=== PATIENT | female | born 1970 | race Caucasian/White ===

== ENCOUNTER 2016-12-22 16:20 | Emergency (ER) | payer OTHER ==
[2016-12-22 16:25] VITALS: BP 143/73; PULSE 85; TEMP 97.5; BMI 29.9
--- NOTE | 2016-12-22 20:30 | PDOC ---
History of Present Illness - General Chief Complaint: Pain, Acute Stated Complaint: PAIN, ACUTE Time Seen by Provider: 12/22/16 19:50 - History of Present Illness Initial Comments: 12/22/16 21:07 Patient is a 46 year old female who presents with left flank pain. The patient reports a 1 month history of left flank pain that has been acutely worsening over the past 1 week. She states that the pain is sharp and worse with movement and breathing. She also notes some pain at the end of urination with foul smelling urine. She denies any fevers, chills, SOB, chest pain, abdominal pain or changes with bowel movements. Past History - Past Medical History Allergies/Adverse Reactions: Allergies Allergy/AdvReac Type Severity Reaction Status Date / Time No Known Allergies Allergy Verified 12/22/16 16:25 Home Medications: Ambulatory Orders NK [No Known Home Medication] 12/22/16 Hypercholesterolemia: Yes Other medical history: TUBAL LIGATION - Surgical History Cholecystectomy: Yes - Psycho/Social/Smoking Cessation Hx Suicidal Ideation: No Smoking History: Never smoked Information on smoking cessation initiated: No Review of Systems - Review of Systems Constitutional: No: Chills, Fever Respiratory: No: Cough, Shortness of Breath Cardiac (ROS): No: Chest Pain, Lightheadedness, Palpitations ABD/GI: No: Constipated, Diarrhea, Nausea, Vomiting : Yes: Dysuria, Flank Pain. No: Hematuria Integumentary: No: Rash Neurological: No: Headache, Numbness, Tingling, Weakness *Physical Exam - Vital Signs Last Vital Signs Temp Pulse Resp BP Pulse Ox 97.5 F L 85 18 143/73 100 12/22/16 16:21 12/22/16 16:21 12/22/16 16:21 12/22/16 16:21 12/22/16 16:21 - Physical Exam Comments: 12/22/16 21:17 General Appearance: Nourished. No Apparent Distress Respiratory/Chest: Lungs Clear, Normal Breath Sounds. No Crackles, Rales, Rhonchi, Wheezing Cardiovascular: Regular Rhythm, Regular Rate. No Murmur, Gallop/S3, Gallop/S4 Gastrointestinal/Abdominal: Normal Bowel Sounds, Soft. No Guarding, Rebound, Tenderness Musculoskeletal: CVA Tenderness (L). No CVA Tenderness (R) Extremity: Normal Capillary Refill Integumentary: Normal Color, Dry, Warm Neurologic: Fully Oriented, Alert, Normal Mood/Affect, Normal Response ED Treatment Course - LABORATORY CBC & Chemistry Diagram: 12/22/16 20:30 12/22/16 20:30 Medical Decision Making - Medical Decision Making 12/22/16 21:25 Patient is a 46 year old female who presents with left flank pain. Differential includes but is not limited to: UTI, Pyelonephritis, Nephrolethiasis, Metabolic derangement. Given the patient's flank pain and pain on urination with foul smelling urine, it is likely her symptoms are due to a UTI or Pyelonephritis. We will obtain a cbc, cmp, and UA to evaluate. 12/22/16 22:07 Cbc, cmp and UA are unremarkable. It is likely her pain is due to musculoskeletal strain. We will give her some torodal and reevaluate. 12/22/16 22:08 The patient reports some improvement in her pain with torodal and is requesting discharge. We feel comfortable discharging the patient at this time. We discussed the results with the patient and she is agreeable with the plan and will follow up with her primary care provider. *DC/Admit/Observation/Transfer Diagnosis at time of Disposition: Musculoskeletal strain - Discharge Dispostion Disposition: HOME Condition at time of disposition: Improved Admit: No - Patient Instructions Printed Discharge Instructions: DI for Muscle Strain Additional Instructions: Por favor volver a ER si experimenta sntomas de empeoramiento o sobre. Por favor llame a seguir con rushing proveedor de cuidado primario para discutir rushing visita ER. Puede alicia ibuprofeno o tylenol para dolor. Es probable que usted tiene la tensin de un msculo de la espalda. Tambin podr descansar y utilizar compresas calientes y fras para ayudar con el dolor. Print Language: BURMESE
[2016-12-22 20:42] LABS: BASOPHIL 0.9 % (0-2.0); MCH 26.1 pg (25.7-33.7); MCHC 32.5 g/dl (32.0-36.0); MEAN CELL VOLUME 80.2 fl (80-96); MEAN PLT VOLUME 9.3 fl (7.5-11.1); NEUTROPHILS 62.3 % (42.8-82.8); PLATELET COUNT 190 K/MM3 (134-434); RDW 15.3 % (11.6-15.6); WHITE BLOOD COUNT 6.3 K/mm3 (4.0-10.0)
[2016-12-22 21:18] LABS: ALBUMIN 3.7 g/dl (3.4-5.0); ANION GAP 7 (8-16); BILIRUBIN,TOTAL 0.5 mg/dL (0.2-1.0); CALCIUM 8.9 mg/dL (8.5-10.1); CO2 31 mmol/L (21-32); CREATININE 0.8 mg/dL (0.55-1.02); GLUCOSE,RANDOM 115 mg/dL (74-106); SGOT/AST 20 U/L (15-37); SGPT/ALT 18 U/L (12-78); TOT PROT 7.5 g/dl (6.4-8.2)
[2016-12-22 21:19] LABS: ALK PHOS 98 U/L (45-117)
[2016-12-22 21:34] LABS: URINE APPEARANCE CLEAR; URINE BILIRUBIN NEGATIVE (NEGATIVE); URINE BLOOD NEGATIVE (NEGATIVE); URINE COLOR STRAW; URINE GLUCOSE (UA) NEGATIVE (NEGATIVE); URINE KETONE NEGATIVE (NEGATIVE); URINE LEUK ESTERASE NEGATIVE (NEGATIVE); URINE NITRITE NEGATIVE (NEGATIVE); URINE PROTEIN NEGATIVE (NEGATIVE); URINE UROBILINOGEN NEGATIVE mg/dL (0.2-1.0)
[2016-12-22] MEDS ORDERED: KETOROLAC TROMETHAMINE 30 MG/1 ML VIAL IM ONE (21:47)
[2016-12-22] MEDS ORDERED: KETOROLAC TROMETHAMINE 30 MG/1 ML VIAL ONE (21:49)
== END 2016-12-22 22:16 | disposition home or self-care (01) ==
LOC: JER 16:20
PROC: 3E0233Z Introduction of Anti-inflammatory into Muscle, Percutaneous Approach (ICD-10-PCS; principal; 2016-12-22)
DX: S39.011A Strain of muscle, fascia and tendon of abdomen, initial encounter (principal); X58.XXXA Exposure to other specified factors, initial encounter; Y93.89 Activity, other specified; Y92.89 Other specified places as the place of occurrence of the external cause
CPT/HCPCS: 36415; 80053; 81003; 84703; 85025; 96372; 99282-25

== ENCOUNTER 2017-06-08 22:42 | Emergency (ER) | payer OTHER ==
[2017-06-08 23:26] VITALS: BP 129/71; PULSE 84; TEMP 97.9; BMI 28.3
--- NOTE | 2017-06-09 01:16 | PDOC ---
History of Present Illness - General Chief Complaint: Pain Stated Complaint: PAIN Time Seen by Provider: 06/09/17 01:08 History Source: Patient Exam Limitations: No Limitations - History of Present Illness Initial Comments: 06/09/17 01:13 47-year-old female with no medical history presents to the emergency department complaining of jaw pain with difficulty chewing and clicking of the jaw joints for approximately 3 years but increased over the past one week. Patient denies fever, chills, injury, sore throat, neck pain/stiffness, difficulty eating/ drinking area patient states she has not seen anyone for her jaw discomfort. Timing/Duration: other (x1 week) Past History - Past Medical History Allergies/Adverse Reactions: Allergies Allergy/AdvReac Type Severity Reaction Status Date / Time No Known Allergies Allergy Verified 12/22/16 16:25 Home Medications: Ambulatory Orders Atorvastatin Ca [Lipitor] 20 mg NR ASDIR 06/09/17 COPD: No Hypercholesterolemia: Yes - Surgical History Cholecystectomy: Yes - Suicide/Smoking/Psychosocial Hx Smoking History: Never smoked Have you smoked in the past 12 months: No Information on smoking cessation initiated: No Hx Alcohol Use: No Drug/Substance Use Hx: No Substance Use Type: None Review of Systems - Review of Systems Able to Perform ROS?: Yes Comments:: 06/09/17 01:14 CONSTITUTIONAL: Absent: fever, chills, diaphoresis, generalized weakness, malaise, loss of appetite HEENT: +b/l jaw pain/clicking x3 years Absent: rhinorrhea, nasal congestion, throat pain, throat swelling, difficulty swallowing, mouth swelling, ear pain, eye pain, visual Changes CARDIOVASCULAR: Absent: chest pain, loss of consciousness, palpitations, irregular heart rate, peripheral edema RESPIRATORY: Absent: cough, shortness of breath, dyspnea with exertion, orthopnea, wheezing, stridor, hemoptysis GASTROINTESTINAL: Absent: abdominal pain, abdominal distension, nausea, vomiting, diarrhea, constipation, melena, hematochezia GENITOURINARY: Absent: dysuria, frequency, urgency, hesitancy, hematuria, flank pain, genital pain MUSCULOSKELETAL: Absent: myalgia, arthralgia, joint swelling SKIN: Absent: rash, itching, pallor Is the patient limited Welsh proficient: No *Physical Exam - Vital Signs Last Vital Signs Temp Pulse Resp BP Pulse Ox 97.9 F 84 18 129/71 100 06/08/17 23:19 06/08/17 23:19 06/08/17 23:19 06/08/17 23:19 06/08/17 23:19 - Physical Exam Comments: 06/09/17 01:14 GENERAL: Well developed, well nourished. Awake and alert. No acute distress. HEENT: +TMJ pain Normocephalic, atraumatic. PERRLA, EOMI. No conjunctival pallor. Sclera are non- icteric. Moist mucous membranes. Oropharynx is clear. NECK: Supple. Full ROM. No JVD. Carotid pulses 2+ and symmetric, without bruits. No thyromegaly. No lymphadenopathy. MUSCULOSKELETAL Normal range of motion at all joints. No bony deformities or tenderness. No CVA tenderness. EXTREMITIES: No cyanosis. No clubbing. No edema. No calf tenderness. SKIN: Warm and dry. Normal capillary refill. No rashes. No jaundice. *DC/Admit/Observation/Transfer Diagnosis at time of Disposition: TMJ (temporomandibular joint disorder) - Discharge Dispostion Disposition: HOME Condition at time of disposition: Stable Admit: No - Referrals Referrals: Celia Martinez MD [Primary Care Provider] - Marii Alatorre MD [Non Staff, Medical] - - Patient Instructions Printed Discharge Instructions: DI for Temporomandibular Disorder Additional Instructions: Ice; 20 mins on alternating with 20 mins off for 48 hours while awake. Rest Follow up with your orthopedic surgeon or the one listed on the discharge form. Return to the ER for severe/persistent/worsening symptoms, extremity numbness/ tingling sensation. Print Language: BERMUDIAN - Post Discharge Activity
== END 2017-06-09 01:17 | disposition home or self-care (01) ==
LOC: JERFT 22:42
DX: M26.69 Other specified disorders of temporomandibular joint (principal)
CPT/HCPCS: 99281-25

== ENCOUNTER 2017-07-08 11:55 | Emergency (ER) | payer OTHER ==
[2017-07-08 12:04] VITALS: BP 139/78; PULSE 95; TEMP 98.6; BMI 30.9
--- NOTE | 2017-07-08 12:46 | PDOC ---
History of Present Illness - General Chief Complaint: Injury Stated Complaint: RT FINGER INJURY Time Seen by Provider: 07/08/17 12:39 History Source: Patient Exam Limitations: No Limitations - History of Present Illness Initial Comments: 07/08/17 13:15 last Thursday, tripped and fellonto right hand hyperextending her right thumbstates has been painful anden since that time.Is able to move finger, but is painful Has had no evaluation. Hashad no treatment Severity: reports: mild, moderate Pain Location: reports: none, upper extremity Modifying Factors: improves with: None, cold therapy Loss of Consciousness: no loss of consciousness Associated Symptoms (Fall): denies symptoms Past History - Travel Traveled outside of the country in the last 30 days: No Close contact w/someone who was outside of country & ill: No - Past Medical History Allergies/Adverse Reactions: Allergies Allergy/AdvReac Type Severity Reaction Status Date / Time No Known Allergies Allergy Verified 07/08/17 12:00 Home Medications: Ambulatory Orders Atorvastatin Ca [Lipitor] 20 mg NR ASDIR 06/09/17 COPD: No Hypercholesterolemia: Yes - Surgical History Cholecystectomy: Yes - Immunization History Immunization Up to Date: Yes - Suicide/Smoking/Psychosocial Hx Smoking History: Never smoked Have you smoked in the past 12 months: No Information on smoking cessation initiated: No Hx Alcohol Use: No Drug/Substance Use Hx: No Substance Use Type: None Review of Systems - Review of Systems Able to Perform ROS?: Yes Is the patient limited Wolof proficient: Yes Constitutional: Yes: Symptoms Reported, See HPI HEENTM: No: Symptoms Reported Musculoskeletal: Yes: Symptoms Reported, See HPI, Joint Pain (right hand/ thumb pain at MTP), Joint Swelling, Joint Stiffness Neurological: Yes: Symptoms reported All Other Systems: Reviewed and Negative *Physical Exam - Vital Signs Last Vital Signs Temp Pulse Resp BP Pulse Ox 98.6 F 95 H 14 139/78 99 07/08/17 12:00 07/08/17 12:00 07/08/17 12:00 07/08/17 12:00 07/08/17 12:00 - Physical Exam General Appearance: Yes: Nourished, Appropriately Dressed, Apparent Distress HEENT: positive: BRITTNY, Normal ENT Inspection, TMs Normal, Pharynx Normal Neck: positive: Supple. negative: Tender Respiratory/Chest: positive: Lungs Clear Musculoskeletal: positive: Normal Inspection Extremity: positive: Tender (pain with ROM decreased at MCP 1st finger. ), Swelling. 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 NML intact, Fully Oriented, Alert Procedures - Splinting Splint Location: Right: Hand (rigth hand ) ED Treatment Course - RADIOLOGY Radiology Studies Ordered: Category Date Time Status HAND- RIGHT [RAD] Stat Radiology 07/08/17 12:39 Ordered Radiograph Interpretation: 07/08/17 13:09 no Fx/ DX Progress Note - Progress Note Progress Note: right thumb sprain , Ajay wrap applied *DC/Admit/Observation/Transfer Diagnosis at time of Disposition: Sprain of right thumb Qualifiers: Encounter type: initial encounter Sprain of finger site: metacarpophalangeal joint Qualified Code(s): S63.641A - Sprain of metacarpophalangeal joint of right thumb, initial encounter - Discharge Dispostion Disposition: HOME Condition at time of disposition: Stable Admit: No - Referrals Referrals: Ruddy Gonzales MD [Staff Physician] - - Patient Instructions Printed Discharge Instructions: DI for Finger Sprain Additional Instructions: Rest, ice to area on and off for 15 minutes 4-6 times a day Avoid heavy lifting or exercise until pain and swelling is resolved or until further directed Keep area highly elevated to reduce swelling Use splints/Ajay wrap as directed Followup with orthopedist in one to 2 days if not improving, if significantly improved may wait one week for followup with orthopedist May use ibuprofen 2-200 mg tablets every 6 hours as needed for pain - Post Discharge Activity Forms/Work/School Notes: Back to Work
== END 2017-07-08 13:06 | disposition home or self-care (01) ==
LOC: JERFT 11:55
DX: S63.641A Sprain of metacarpophalangeal joint of right thumb, initial encounter (principal); W18.39XA Other fall on same level, initial encounter; Y93.89 Activity, other specified; Y92.9 Unspecified place or not applicable; E78.00 Pure hypercholesterolemia, unspecified
CPT/HCPCS: 73130-TC-RT-FY; 99281-25

== ENCOUNTER 2017-09-23 16:04 | Emergency (ER) | payer OTHER ==
[2017-09-23 16:15] VITALS: TEMP 98.3; BMI 31.7
--- NOTE | 2017-09-23 16:16 | PDOC ---
Rapid Medical Evaluation Time Seen by Provider: 09/23/17 16:09 Medical Evaluation: Allergies Allergy/AdvReac Type Severity Reaction Status Date / Time No Known Allergies Allergy Verified 09/23/17 16:06 09/23/17 16:09 I have performed a brief in-person evaluation of the patient. The patient presents with a chief complaint of : epigastric pain radiating into mid chest x 1 week intermittently. Reports as burining sensation after she eats with no nausea or vomiting Taking omeprazole Pertinent physical exam findings. NAD mild tenderness in epigastric area non tender abdomen, + bowel sounds I have ordered the following ekg, labs This patient will proceed to the ED for further evaluation.
[2017-09-23 16:45] LABS: BASO % 0.8 % (0-2.0); EOS % 1.7 % (0-4.5); HEMATOCRIT 35.6 % (32.4-45.2); HEMOGLOBIN 11.5 GM/dL (10.7-15.3); LYMPH % 28.8 % (8-40); MCHC 32.4 g/dl (32.0-36.0); MEAN CELL VOLUME 80.3 fl (80-96); MEAN PLT VOLUME 9.2 fl (7.5-11.1); MONO % 5.8 % (3.8-10.2); NEUT % 62.9 % (42.8-82.8); PLATELET COUNT 202 K/MM3 (134-434); RBC 4.44 M/mm3 (3.60-5.2); RDW 15.4 % (11.6-15.6); WHITE BLOOD COUNT 6.1 K/mm3 (4.0-10.0)
[2017-09-23 16:56] LABS: INR 1.02 (0.82-1.09); PROTHROMBIN TIME (PATIENT) 11.5 SEC (9.7-13.0)
[2017-09-23 16:59] LABS: ACTIVATED PTT 31.8 SECONDS (26.9-34.4)
[2017-09-23 17:10] LABS: ALBUMIN 3.5 g/dl (3.4-5.0); ALK PHOS 92 U/L (45-117); ANION GAP 4 (8-16); BILIRUBIN,TOTAL 0.6 mg/dL (0.2-1.0); BLOOD UREA NITROGEN 13 mg/dL (7-18); CALCIUM 7.9 mg/dL (8.5-10.1); CHLORIDE 107 mmol/L (98-107); CO2 30 mmol/L (21-32); GLUCOSE,RANDOM 147 mg/dL (74-106); POTASSIUM 3.9 mmol/L (3.5-5.1); SGOT/AST 20 U/L (15-37); SGPT/ALT 21 U/L (12-78); SODIUM 141 mmol/L (136-145); TOT PROT 7.1 g/dl (6.4-8.2)
[2017-09-23] MEDS ORDERED: ONDANSETRON 4 MG TABLET PO ONE (17:11)
[2017-09-23] MEDS ORDERED: RANITIDINE HCL 150 MG TABLET (FP) PO ONE (17:11)
[2017-09-23] MEDS ORDERED: ONDANSETRON 4 MG/2 ML VIAL IVPUSH ONE (17:27)
[2017-09-23] MEDS ORDERED: SODIUM CHLORIDE 0.9% 1000 ML INFUS.BAG IV ONE (17:27)
[2017-09-23] MEDS ORDERED: FAMOTIDINE 20 MG/50 ML IVPB 20 MG/50 ML MG IVPB ONE ×2 (17:30→17:55)
[2017-09-23] MEDS ORDERED: ONDANSETRON 4 MG/2 ML VIAL ONE (17:55)
[2017-09-23 18:50] LABS: HCG,QUALITATIVE URINE NEGATIVE; URINE APPEARANCE CLEAR; URINE BILIRUBIN NEGATIVE (<2.0 mg/dL); URINE COLOR LTYELLOW; URINE GLUCOSE (UA) NEGATIVE (NEGATIVE); URINE KETONE NEGATIVE (NEGATIVE); URINE LEUK ESTERASE TRACE (NEGATIVE); URINE NITRITE NEGATIVE (NEGATIVE); URINE PROTEIN NEGATIVE (NEGATIVE); URINE UROBILINOGEN NEGATIVE mg/dL (0.2-1.0)
[2017-09-23 18:52] LABS: EPI CELLS RARE /HPF (FEW)
--- NOTE | 2017-09-23 19:25 | PDOC ---
History of Present Illness - General Chief Complaint: Nausea/Vomiting Stated Complaint: EPIGASTRIC PAIN Time Seen by Provider: 09/23/17 16:09 History Source: Patient Exam Limitations: No Limitations - History of Present Illness Initial Comments: 09/23/17 19:19 The patient is a 47F with a PMH of HLD and GERD who presents to the ER with complaints of abdominal pain. The patient states that she's had epigastric abdominal pain which is gradually worsening x 1 week, described as a burning sensation, worse with spicy foods, coffee, and laying down, and not alleviated by anything. She states it radiates upwards in her chest. She also admits to nausea but denies vomiting, fever, chills, CP, SOB. Past History - Past Medical History Allergies/Adverse Reactions: Allergies Allergy/AdvReac Type Severity Reaction Status Date / Time No Known Allergies Allergy Verified 09/23/17 16:06 Home Medications: Ambulatory Orders Atorvastatin Ca [Lipitor] 20 mg NR ASDIR 06/09/17 COPD: No Hypercholesterolemia: Yes - Surgical History Cholecystectomy: Yes - Immunization History Immunization Up to Date: Yes - Suicide/Smoking/Psychosocial Hx Smoking History: Never smoked Have you smoked in the past 12 months: No Hx Alcohol Use: No Drug/Substance Use Hx: No Substance Use Type: None Review of Systems - Review of Systems Able to Perform ROS?: Yes Comments:: 09/23/17 19:21 GENERAL/CONSTITUTIONAL: No fever or chills. No weakness. HEAD, EYES, EARS, NOSE AND THROAT: No change in vision. No ear pain or discharge. No sore throat. CARDIOVASCULAR: No chest pain, palpitations, or lightheadedness. RESPIRATORY: No cough, wheezing, shortness of breath, or hemoptysis. GASTROINTESTINAL: Positive for nausea and abdominal pain. No vomiting, diarrhea , or constipation. GENITOURINARY: No dysuria, frequency, hematuria, or change in urination. MUSCULOSKELETAL: No joint or muscle swelling or pain. No neck or back pain. SKIN: No rash or lesions. NEUROLOGIC: No headache, numbness, tingling, weakness, loss of consciousness, or change in strength/sensation. ENDOCRINE: No increased thirst. No abnormal weight change. HEMATOLOGIC/LYMPHATIC: No anemia, easy bleeding, or history of blood clots. ALLERGIC/IMMUNOLOGIC: No hives or skin allergy. Is the patient limited Korean proficient: No *Physical Exam - Vital Signs Last Vital Signs Temp Pulse Resp BP Pulse Ox 98.3 F 95 H 20 150/73 100 09/23/17 16:08 09/23/17 16:08 09/23/17 16:08 09/23/17 16:08 09/23/17 16:08 - Physical Exam Comments: 09/23/17 19:22 GENERAL: Well developed, well nourished. Awake and alert. No acute distress. HEENT: Normocephalic, atraumatic. Hearing grossly normal. Moist mucous membranes. PERRLA, EOMI. No conjunctival pallor. Sclera are non-icteric. NECK: Supple. Full ROM. CARDIOVASCULAR: Regular rate and rhythm. No murmurs, rubs, or gallops. PULMONARY: No evidence of respiratory distress. Lungs clear to auscultation bilaterally. No wheezing, rales or rhonchi. ABDOMINAL: Soft. Tender to palpation over b/l lower quadrants and epigastrium. Non-distended. No rebound or guarding. GENITOURINARY: No CVA tenderness bilaterally. MUSCULOSKELETAL: Normal range of motion at all joints. No bony deformities or tenderness. EXTREMITIES: No cyanosis. No clubbing. No edema. No calf tenderness or swelling. SKIN: Warm and dry. Normal capillary refill. No rashes. No jaundice. NEUROLOGICAL: Alert, awake, appropriate. Cranial nerves 2-12 intact. Normal speech. Gait is normal without ataxia. PSYCHIATRIC: Cooperative. Good eye contact. Appropriate mood and affect. ED Treatment Course - LABORATORY CBC & Chemistry Diagram: 09/23/17 16:27 09/23/17 16:27 - ADDITIONAL ORDERS Additional order review: Laboratory Results 09/23/17 09/23/17 09/23/17 18:22 16:27 16:27 PT with INR INR PTT (Actin FS) Sodium 141 Potassium 3.9 Chloride 107 Carbon Dioxide 30 Anion Gap 4 L BUN 13 Creatinine 1.0 Creat Clearance w eGFR 58.93 Random Glucose 147 H Calcium 7.9 L Total Bilirubin 0.6 AST 20 ALT 21 Alkaline Phosphatase 92 Troponin I < 0.02 Total Protein 7.1 Albumin 3.5 Lipase 259 Urine Color Ltyellow Urine Appearance Clear Urine pH 7.0 Ur Specific [place] 1.014 Urine Protein Negative Urine Glucose (UA) Negative Urine Ketones Negative Urine Blood Negative Urine Nitrite Negative Urine Bilirubin Negative Urine Urobilinogen Negative Ur Leukocyte Esterase Trace Urine WBC (Auto) 4 Urine RBC (Auto) None Ur Epithelial Cells Rare Urine HCG, Qual Negative 09/23/17 16:27 PT with INR 11.50 INR 1.02 PTT (Actin FS) 31.8 Sodium Potassium Chloride Carbon Dioxide Anion Gap BUN Creatinine Creat Clearance w eGFR Random Glucose Calcium Total Bilirubin AST ALT Alkaline Phosphatase Troponin I Total Protein Albumin Lipase Urine Color Urine Appearance Urine pH Ur Specific [place] Urine Protein Urine Glucose (UA) Urine Ketones Urine Blood Urine Nitrite Urine Bilirubin Urine Urobilinogen Ur Leukocyte Esterase Urine WBC (Auto) Urine RBC (Auto) Ur Epithelial Cells Urine HCG, Qual 09/23/17 16:27 RBC 4.44 MCV 80.3 MCHC 32.4 RDW 15.4 MPV 9.2 Neutrophils % 62.9 Lymphocytes % 28.8 Monocytes % 5.8 Eosinophils % 1.7 Basophils % 0.8 - Medications Given in the ED: ED Medications Discontinued Medications Generic Name Dose Route Start Last Admin Trade Name Freq PRN Reason Stop Dose Admin Famotidine/Sodium Chloride 20 mg in 50 mls @ 100 mls/hr 09/23/17 17:30 17:30 Pepcid 20 Mg Premixed Ivpb - IVPB 09/23/17 17:59 100 mls/hr ONCE ONE Administration Ondansetron HCl 4 mg 09/23/17 17:11 09/23/17 18:04 Zofran - PO 09/23/17 17:12 Not Given ONCE ONE Ondansetron HCl 4 mg 09/23/17 17:27 09/23/17 17:30 Zofran Injection IVPUSH 09/23/17 17:28 4 mg ONCE ONE Administration Ranitidine HCl 300 mg 09/23/17 17:11 09/23/17 18:04 Zantac - PO 09/23/17 17:12 Not Given ONCE ONE Sodium Chloride 1,000 ml 09/23/17 17:27 09/23/17 17:30 Normal Saline - IV 09/23/17 17:28 1,000 ml ONCE ONE Administration Medical Decision Making - Medical Decision Making 09/23/17 19:22 The patient is a 47F with a PMH of HLD and GERD who presents with epigastric abdominal pain. I will r/o ACS with trop and EKG. Will r/o pancreatitis with lipase. All labs WNL including trop and lipase. Will give pt pepcid, zofran, and fluids and reassess. Pt signed out to Dr. Moore.
[2017-09-23] MEDS ORDERED: MAG HYDROX/AL HYDROX/SIMETH -MYLANTA- ORAL SUSPENSION PO ONE (19:37)
[2017-09-23 19:38] VITALS: BP 117/71; PULSE 74
[2017-09-23] MEDS ORDERED: LIDOCAINE VISCOUS 2% ORAL/TOP 20 ML UNIT-DOSE CUP MM ONE (19:38)
--- NOTE | 2017-09-23 19:45 | PDOC ---
*Physical Exam - Vital Signs Last Vital Signs Temp Pulse Resp BP Pulse Ox 98.3 F 74 18 117/71 100 09/23/17 16:08 09/23/17 19:37 09/23/17 19:37 09/23/17 19:37 09/23/17 19:37 - Physical Exam Comments: 09/23/17 19:44 GENERAL: Awake, alert, and fully oriented, in no acute distress HEAD: No signs of trauma, normocephalic, atraumatic EYES: PERRLA, EOMI, sclera anicteric, conjunctiva clear ENT: Auricles normal inspection, hearing grossly normal, nares patent, oropharynx clear without exudates. Moist mucosa NECK: Normal ROM, supple, no lymphadenopathy, JVD, or masses LUNGS: No distress, speaks full sentences, clear to auscultation bilaterally HEART: Regular rate and rhythm, normal S1 and S2, no murmurs, rubs or gallops, peripheral pulses normal and equal bilaterally. ABDOMEN: Soft, + midepigastric ttp, normoactive bowel sounds. No guarding, no rebound. No masses EXTREMITIES : Normal inspection, Normal range of motion, no edema. No clubbing or cyanosis. NEUROLOGICAL: Cranial nerves II through XII grossly intact. Normal speech, normal gait, no focal sensorimotor deficits SKIN: Warm, Dry, normal turgor, no rashes or lesions noted ED Treatment Course - LABORATORY CBC & Chemistry Diagram: 09/23/17 16:27 09/23/17 16:27 - ADDITIONAL ORDERS Additional order review: Laboratory Results 09/23/17 09/23/17 09/23/17 18:22 16:27 16:27 PT with INR INR PTT (Actin FS) Sodium 141 Potassium 3.9 Chloride 107 Carbon Dioxide 30 Anion Gap 4 L BUN 13 Creatinine 1.0 Creat Clearance w eGFR 58.93 Random Glucose 147 H Calcium 7.9 L Total Bilirubin 0.6 AST 20 ALT 21 Alkaline Phosphatase 92 Troponin I < 0.02 Total Protein 7.1 Albumin 3.5 Lipase 259 Urine Color Ltyellow Urine Appearance Clear Urine pH 7.0 Ur Specific [place] 1.014 Urine Protein Negative Urine Glucose (UA) Negative Urine Ketones Negative Urine Blood Negative Urine Nitrite Negative Urine Bilirubin Negative Urine Urobilinogen Negative Ur Leukocyte Esterase Trace Urine WBC (Auto) 4 Urine RBC (Auto) None Ur Epithelial Cells Rare Urine HCG, Qual Negative 09/23/17 16:27 PT with INR 11.50 INR 1.02 PTT (Actin FS) 31.8 Sodium Potassium Chloride Carbon Dioxide Anion Gap BUN Creatinine Creat Clearance w eGFR Random Glucose Calcium Total Bilirubin AST ALT Alkaline Phosphatase Troponin I Total Protein Albumin Lipase Urine Color Urine Appearance Urine pH Ur Specific [place] Urine Protein Urine Glucose (UA) Urine Ketones Urine Blood Urine Nitrite Urine Bilirubin Urine Urobilinogen Ur Leukocyte Esterase Urine WBC (Auto) Urine RBC (Auto) Ur Epithelial Cells Urine HCG, Qual 09/23/17 16:27 RBC 4.44 MCV 80.3 MCHC 32.4 RDW 15.4 MPV 9.2 Neutrophils % 62.9 Lymphocytes % 28.8 Monocytes % 5.8 Eosinophils % 1.7 Basophils % 0.8 - Medications Given in the ED: ED Medications Discontinued Medications Generic Name Dose Route Start Last Admin Trade Name Freq PRN Reason Stop Dose Admin Famotidine/Sodium Chloride 20 mg in 50 mls @ 100 mls/hr 09/23/17 17:30 17:30 Pepcid 20 Mg Premixed Ivpb - IVPB 09/23/17 17:59 100 mls/hr ONCE ONE Administration Ondansetron HCl 4 mg 09/23/17 17:11 09/23/17 18:04 Zofran - PO 09/23/17 17:12 Not Given ONCE ONE Ondansetron HCl 4 mg 09/23/17 17:27 09/23/17 17:30 Zofran Injection IVPUSH 09/23/17 17:28 4 mg ONCE ONE Administration Ranitidine HCl 300 mg 09/23/17 17:11 09/23/17 18:04 Zantac - PO 09/23/17 17:12 Not Given ONCE ONE Sodium Chloride 1,000 ml 09/23/17 17:27 09/23/17 17:30 Normal Saline - IV 09/23/17 17:28 1,000 ml ONCE ONE Administration Medical Decision Making - Medical Decision Making 09/23/17 19:46 47 yo F with h/o HLD and GERD who presents with epigastric abdominal pain. Pt is ACS r/o. Pt. received Pepcid, Zofran, and fluids. Received handoff from Dr. Snow. ED Course: CBC,CMP: Unremarkable Lipase: Neg Trop: Neg UA: Neg 09/23/17 21:07 Patient tolerating PO intake. Pain resolved and ambulating back and forth to bathroom without difficulty. Vital signs are wnl. Patient requests d/c from ED. Patient given d/c instructions. Patient advised to come back to ED following positive d-dimer~527. Called patient cell/home phoen [phone], and left message requesting patient to return to ED and call ED back. 09/24/17 00:43 Patient stable for d/c with return precautions. CTA negative for PE. Advised to f/u with PMD. *DC/Admit/Observation/Transfer Diagnosis at time of Disposition: Epigastric pain, Dyspepsia - Discharge Dispostion Disposition: HOME Condition at time of disposition: Stable Decision to Admit order: No - Referrals - Patient Instructions Printed Discharge Instructions: DI for Dyspepsia, DI for Epigastric Pain Additional Instructions: Please return to the emergency department with any new or worsening symptoms or concerns. Please follow up with your primary care physician within 72 hours. Please follow up with gastroenterology within one week. - Post Discharge Activity - Attestations Physician Attestion: 09/23/17 21:10 I attest to the information provided in this note.
[2017-09-23] MEDS ORDERED: MAG HYDROX/AL HYDROX/SIMETH 30 ML UNIT-DOSE CUP ONE (19:47)
[2017-09-23] MEDS ORDERED: LIDOCAINE HCL 2% JELLY 10 ML CARTRIDGE ONE (19:47)
--- NOTE | 2017-09-23 22:20 | PDOC ---
Patient Follow-up (Call Back) - Post ED Follow - Up Condition at time of discharge: Stable Disposition at time of original discharge: HOME - Disposition Additional Instructions/Notes: Pt was discharged prior to D dimer result. Ddimer elevated. I spoke with pt's daughter over the phone and instructed her to bring her mother back immediately. Daughter expressed understanding and stated she will bring her back now. Pt arrived to ED.
--- NOTE | 2017-09-24 00:38 | PDOC ---
*Physical Exam - Vital Signs Last Vital Signs Temp Pulse Resp BP Pulse Ox 98.3 F 74 18 117/71 100 09/23/17 16:08 09/23/17 19:37 09/23/17 19:37 09/23/17 19:37 09/23/17 19:37 - Physical Exam Comments: 09/24/17 00:37 "GENERAL: Awake, alert, and fully oriented, in no acute distress. HEAD: No signs of trauma EYES: PERRLA, EOMI, sclera anicteric, conjunctiva clear ENT: Auricles normal inspection, hearing grossly normal, nares patent, oropharynx clear without exudates. Moist mucosa NECK: Nontender, no stepoffs, Normal ROM, supple, no lymphadenopathy, JVD, or masses LUNGS: Breath sounds equal, clear to auscultation bilaterally. No wheezes, and no crackles HEART: Regular rate and rhythm, normal S1 and S2, no murmurs, rubs or gallops ABDOMEN: Soft, nontender, normoactive bowel sounds. No guarding, no rebound. No masses EXTREMITIES: Normal range of motion, no edema. No clubbing or cyanosis. No cords, erythema, or tenderness NEUROLOGICAL: Cranial nerves II through XII intact. 5/5 strength and sensation in all extremities, Normal speech, normal gait, normal cerebellar function SKIN: Warm, Dry, normal turgor, no rashes or lesions noted. " ED Treatment Course - LABORATORY CBC & Chemistry Diagram: 09/23/17 16:27 09/23/17 16:27 - ADDITIONAL ORDERS Additional order review: Laboratory Results 09/23/17 09/23/17 09/23/17 20:25 20:25 18:22 PT with INR INR PTT (Actin FS) D-Dimer 527 H Sodium Potassium Chloride Carbon Dioxide Anion Gap BUN Creatinine Creat Clearance w eGFR Random Glucose Calcium Total Bilirubin AST ALT Alkaline Phosphatase Creatine Kinase 144 Troponin I < 0.02 Total Protein Albumin Lipase Urine Color Ltyellow Urine Appearance Clear Urine pH 7.0 Ur Specific Brethren 1.014 Urine Protein Negative Urine Glucose (UA) Negative Urine Ketones Negative Urine Blood Negative Urine Nitrite Negative Urine Bilirubin Negative Urine Urobilinogen Negative Ur Leukocyte Esterase Trace Urine WBC (Auto) 4 Urine RBC (Auto) None Ur Epithelial Cells Rare Urine HCG, Qual Negative 09/23/17 09/23/17 09/23/17 16:27 16:27 16:27 PT with INR 11.50 INR 1.02 PTT (Actin FS) 31.8 D-Dimer Sodium 141 Potassium 3.9 Chloride 107 Carbon Dioxide 30 Anion Gap 4 L BUN 13 Creatinine 1.0 Creat Clearance w eGFR 58.93 Random Glucose 147 H Calcium 7.9 L Total Bilirubin 0.6 AST 20 ALT 21 Alkaline Phosphatase 92 Creatine Kinase Troponin I < 0.02 Total Protein 7.1 Albumin 3.5 Lipase 259 Urine Color Urine Appearance Urine pH Ur Specific Brethren Urine Protein Urine Glucose (UA) Urine Ketones Urine Blood Urine Nitrite Urine Bilirubin Urine Urobilinogen Ur Leukocyte Esterase Urine WBC (Auto) Urine RBC (Auto) Ur Epithelial Cells Urine HCG, Qual 09/23/17 16:27 RBC 4.44 MCV 80.3 MCHC 32.4 RDW 15.4 MPV 9.2 Neutrophils % 62.9 Lymphocytes % 28.8 Monocytes % 5.8 Eosinophils % 1.7 Basophils % 0.8 - Medications Given in the ED: ED Medications Discontinued Medications Generic Name Dose Route Start Last Admin Trade Name Uriahq PRN Reason Stop Dose Admin Al Hydroxide/Mg Hydroxide 30 ml 09/23/17 19:37 09/23/17 20:15 Mylanta Suspension - PO 09/23/17 19:38 Not Given ONCE ONE Famotidine/Sodium Chloride 20 mg in 50 mls @ 100 mls/hr 09/23/17 17:30 17:30 Pepcid 20 Mg Premixed Ivpb - IVPB 09/23/17 17:59 100 mls/hr ONCE ONE Administration Lidocaine HCl 10 ml 09/23/17 19:38 09/23/17 20:16 Xylocaine 2% Viscous Oral - MM 09/23/17 19:39 Not Given ONCE ONE Ondansetron HCl 4 mg 09/23/17 17:11 09/23/17 18:04 Zofran - PO 09/23/17 17:12 Not Given ONCE ONE Ondansetron HCl 4 mg 09/23/17 17:27 09/23/17 17:30 Zofran Injection IVPUSH 09/23/17 17:28 4 mg ONCE ONE Administration Ranitidine HCl 300 mg 09/23/17 17:11 09/23/17 18:04 Zantac - PO 09/23/17 17:12 Not Given ONCE ONE Sodium Chloride 1,000 ml 09/23/17 17:27 09/23/17 17:30 Normal Saline - IV 09/23/17 17:28 1,000 ml ONCE ONE Administration Medical Decision Making - Medical Decision Making 09/24/17 00:38 47 F with pleuritic epigastric pain. Sign out taken from Dr. Carrera at 7PM. Pt initially discharged but called back after positive ddimer. CTA obtained, prelim read negative for PE. Pt reassessed - no longer complaining of pain. Pt is well appearing, with normal vitals. Clinically stable for DC at this time. I discussed the physical exam findings, ancillary test results and final diagnoses with the patient. I answered all of the patient's questions. The patient was satisfied with the care received and felt comfortable with the discharge plan and treatment plan. The patient agrees to follow up with the primary care physician within 24-72 hours. *DC/Admit/Observation/Transfer Diagnosis at time of Disposition: Epigastric pain, Dyspepsia - Discharge Dispostion Disposition: HOME Condition at time of disposition: Stable - Referrals - Patient Instructions Printed Discharge Instructions: DI for Dyspepsia, DI for Epigastric Pain Additional Instructions: Please return to the emergency department with any new or worsening symptoms or concerns. Please follow up with your primary care physician within 72 hours. Please follow up with gastroenterology within one week. - Post Discharge Activity - Attestations Physician Attestion: 09/24/17 00:41 I, Dr. Jaquan Garcia MD, attest that this document has been prepared under my direction and personally reviewed by me in its entirety. I further attest, that it accurately reflects all work, treatment, procedures and medical decision -making performed by me.
--- NOTE | 2017-09-24 13:28 | EKG ---
Test Reason : Blood Pressure : / mmHG Vent. Rate : 096 BPM Atrial Rate : 096 BPM P-R Int : 142 ms QRS Dur : 094 ms QT Int : 360 ms P-R-T Axes : 053 -32 036 degrees QTc Int : 454 ms SINUS RHYTHM WITH PREMATURE SUPRAVENTRICULAR COMPLEXES LEFT AXIS DEVIATION INCOMPLETE RIGHT BUNDLE BRANCH BLOCK ABNORMAL ECG NO PREVIOUS ECGS AVAILABLE Confirmed by STACEY NUNEZ MD ([id number]) on 09/24/2017 1:28:07 PM Referred By: Confirmed By:STACEY NUNEZ MD
== END 2017-09-24 02:43 | disposition home or self-care (01) ==
LOC: JER 16:04
PROC: 3E0337Z Introduction of Electrolytic and Water Balance Substance into Peripheral Vein, Percutaneous Approach (ICD-10-PCS; principal; 2017-09-23)
PROC: 3E033GC Introduction of Other Therapeutic Substance into Peripheral Vein, Percutaneous Approach (ICD-10-PCS; 2017-09-23)
DX: R10.13 Epigastric pain (principal)
CPT/HCPCS: 36415; 71046-TC-FY; 71275-TC; 80053; 81003; 81015; 82550; 83690; 84484; 84703; 85025; 85379; 85610; 85730; 87086; 93005; 93010; 99282-25; J7030

== ENCOUNTER 2020-03-31 18:32 | Emergency (ER) | payer OTHER ==
[2020-03-31 18:59] VITALS: BP 123/77; PULSE 81; TEMP 98.7; BMI 31.7
[2020-03-31 21:50] LABS: BASO % 0.6 % (0-2.0); EOS % 1.2 % (0-4.5); HEMATOCRIT 38.6 % (32.4-45.2); HEMOGLOBIN 12.6 GM/dL (10.7-15.3); LYMPH % 26.8 % (8-40); MCH 25.8 pg (25.7-33.7); MCHC 32.6 g/dl (32.0-36.0); MEAN CELL VOLUME 79.2 fl (80-96); MEAN PLT VOLUME 9.3 fl (7.5-11.1); MONO % 4.6 % (3.8-10.2); NEUT % 66.8 % (42.8-82.8); PLATELET COUNT 228 K/MM3 (134-434); RBC 4.87 M/mm3 (3.60-5.2); WHITE BLOOD COUNT 6.3 K/mm3 (4.0-10.0)
[2020-03-31 22:10] LABS: POTASSIUM 3.9 mmol/L (3.5-5.1)
[2020-03-31 22:11] LABS: EPI CELLS 15 /uL (0-25.1); HYALINE CASTS 0 /uL (0-3.1); PH,URINE 6.5 (5.0-8.0); URINE APPEARANCE CLEAR; URINE BACTERIA 1921 /uL (0-1359); URINE BILIRUBIN NEGATIVE (NEGATIVE); URINE COLOR YELLOW; URINE GLUCOSE (UA) NEGATIVE (NEGATIVE); URINE KETONE NEGATIVE (NEGATIVE); URINE LEUK ESTERASE 1+ (NEGATIVE); URINE NITRITE NEGATIVE (NEGATIVE); URINE PROTEIN NEGATIVE (NEGATIVE); URINE RBC 5 /uL (0-23.9); URINE UROBILINOGEN 0.2 mg/dL (0.2-1.0); URINE WBC 64 /uL (0-25.8)
[2020-03-31 22:12] LABS: CALCIUM 8.8 mg/dL (8.5-10.1)
[2020-03-31 22:13] LABS: ALBUMIN 3.9 g/dl (3.4-5.0); BLOOD UREA NITROGEN 10.7 mg/dL (7-18)
[2020-03-31 22:16] LABS: CREATININE 0.8 mg/dL (0.55-1.3)
[2020-03-31 22:18] LABS: BILIRUBIN,TOTAL 0.6 mg/dL (0.2-1); TOT PROT 7.6 g/dl (6.4-8.2)
[2020-03-31] MEDS ORDERED: ACETAMINOPHEN 325 MG TABLET (FP) ONE (22:24)
[2020-03-31] MEDS ORDERED: ACETAMINOPHEN 325 MG TABLET (FP) PO ONE (22:24)
== END 2020-03-31 22:41 | disposition home or self-care (01) ==
LOC: JER 18:32
DX: N30.00 Acute cystitis without hematuria (principal)
CPT/HCPCS: 36415; 74176-TC; 80053; 81003; 85025; 87086; 99285-25

== ENCOUNTER 2021-03-14 14:25 | Emergency (ER) | payer OTHER ==
[2021-03-14 14:59] VITALS: BP 125/80; PULSE 81; TEMP 98; BMI 35.2
[2021-03-14] MEDS ORDERED: SODIUM CHLORIDE 1,000 ML IV STA (15:54)
[2021-03-14] MEDS ORDERED: ACETAMINOPHEN 1000 MG/100 ML VIAL IVPB ONE (15:58)
[2021-03-14] MEDS ORDERED: ACETAMINOPHEN INJECTION 100 ML IVPB ONE (16:14)
[2021-03-14 17:09] LABS: BASO % 0.6 % (0-2.0); EOS % 1.5 % (0-4.5); HEMATOCRIT 38.6 % (32.4-45.2); HEMOGLOBIN 12.6 GM/dL (10.7-15.3); LYMPH % 16.1 % (8-40); MCH 25.9 pg (25.7-33.7); MCHC 32.7 g/dl (32.0-36.0); MEAN CELL VOLUME 79.3 fl (80-96); MEAN PLT VOLUME 9.2 fl (7.5-11.1); MONO % 4.9 % (3.8-10.2); NEUT % 76.9 % (42.8-82.8); PLATELET COUNT 209 10^3/uL (134-434); RBC 4.87 M/mm3 (3.60-5.2); RDW 15.5 % (11.6-15.6); WHITE BLOOD COUNT 7.9 K/mm3 (4.0-10.0)
[2021-03-14 17:47] LABS: ALBUMIN 3.8 g/dl (3.4-5.0); CALCIUM 8.7 mg/dL (8.5-10.1)
[2021-03-14 17:48] LABS: PH,URINE 7.5 (5.0-8.0); URINE APPEARANCE CLEAR; URINE BILIRUBIN NEGATIVE (NEGATIVE); URINE COLOR YELLOW; URINE GLUCOSE (UA) NEGATIVE (NEGATIVE); URINE KETONE NEGATIVE (NEGATIVE); URINE LEUK ESTERASE NEGATIVE (NEGATIVE); URINE NITRITE NEGATIVE (NEGATIVE); URINE PROTEIN NEGATIVE (NEGATIVE)
[2021-03-14 17:48] LABS: BLOOD UREA NITROGEN 10.8 mg/dL (7-18)
[2021-03-14 17:50] LABS: CREATININE 0.9 mg/dL (0.55-1.3)
[2021-03-14 17:52] LABS: BILIRUBIN,TOTAL 0.9 mg/dL (0.2-1); TOT PROT 7.9 g/dl (6.4-8.2)
== END 2021-03-14 20:52 | disposition home or self-care (01) ==
LOC: JER 14:25
PROC: 3E0333Z Introduction of Anti-inflammatory into Peripheral Vein, Percutaneous Approach (ICD-10-PCS; principal; 2021-03-14)
PROC: 3E0337Z Introduction of Electrolytic and Water Balance Substance into Peripheral Vein, Percutaneous Approach (ICD-10-PCS; 2021-03-14)
DX: R10.30 Lower abdominal pain, unspecified (principal)
CPT/HCPCS: 36415; 74176-TC; 80053; 81003; 85025; 87086; 99284-25; J0131

== ENCOUNTER 2021-04-22 13:19 | Emergency (ER) | payer OTHER ==
[2021-04-22 13:29] VITALS: BMI 30.5
[2021-04-22] MEDS ORDERED: ACETAMINOPHEN 500 MG TABLET (FP) PO ONE (14:23)
[2021-04-22] MEDS ORDERED: ONDANSETRON *ODT* 4 MG TABLET SL ONE (15:06)
[2021-04-22] MEDS ORDERED: ONDANSETRON *ODT* 4 MG TABLET ONE (15:34)
[2021-04-22] MEDS ORDERED: ACETAMINOPHEN 500 MG TABLET (FP) ONE (15:34)
[2021-04-22 18:57] VITALS: BP 111/70; PULSE 116; TEMP 99.2
[2021-04-23 14:07] LABS: SARS-CoV-2 NAA Detected (Not Detected)
== END 2021-04-22 20:00 | disposition home or self-care (01) ==
LOC: JER 13:19
DX: U07.1 COVID-19 (principal)
CPT/HCPCS: 87804; 87807; 93005; 93010; 99284-25; C9803; Q0162; U0003; U0005

== ENCOUNTER 2022-10-18 15:59 | Emergency (ER) | payer OTHER ==
[2022-10-18 16:09] VITALS: BP 121/74; PULSE 85; RESP 16; TEMP 98.3; BMI 30.9
[2022-10-18] MEDS ORDERED: KETOROLAC TROMETHAMINE 30 MG/1 ML VIAL IM ONE (17:36)
[2022-10-18] MEDS ORDERED: KETOROLAC TROMETHAMINE 30 MG/1 ML VIAL ONE (17:50)
== END 2022-10-18 18:41 | disposition home or self-care (01) ==
LOC: JERFT 15:59
PROC: 3E0233Z Introduction of Anti-inflammatory into Muscle, Percutaneous Approach (ICD-10-PCS; principal; 2022-10-18)
DX: S53.401A Unspecified sprain of right elbow, initial encounter (principal); M25.521 Pain in right elbow; X50.0XXA Overexertion from strenuous movement or load, initial encounter; Y93.F2 Activity, caregiving, lifting; Y92.009 Unspecified place in unspecified non-institutional (private) residence as the place of occurrence of the external cause
CPT/HCPCS: 73070-TC-RT-FY; 73090-TC-RT-FY; 99284-25